=== PATIENT | male | born 1965 | race Caucasian/White ===

== ENCOUNTER 2016-07-03 16:03 | Emergency (ER) | payer BC ==
--- NOTE | ~2016-07-03 | CR173 ---
[facility]. [facility] A Service of [facility] & [facility] RADIOLOGY TEXT RESULTS PATIENT: LANIE TA LOCATION: SED : 61 UNIT #: [id number] AGE: [address]: Jesika Ding SEX: M ORDER DR: [id number] [place] [id number] MR#: [id number] Acc #: [id number] NAME: LANIE TA : 1965 SEX: M STUDY DATE/TIME: 07/03/2016 16:21 UNIT: SED ROOM: STUDY DESCRIPTION: CR Knee 3 Views Rt Attending Physician: Jesika Ding Pa-C Ordering Physician: Jesika Ding Pa-C Primary Care Physician: Soham Starks M.D. MEDICAL IMAGING REPORT This report is preliminary unless electronic signature is present. EXAM Right knee, 3 views. INDICATIONS Right knee pain since yesterday after slipping and injuring himself. COMPARISON No comparisons. FINDINGS There is no joint effusion. There is minimal patellar enthesopathy. There is no fracture. The joint spaces are maintained. IMPRESSION No acute findings. Minimal patellar enthesopathy. Dictated by... Adama Garcia M.D. THIS IS AN ELECTRONICALLY VERIFIED REPORT Adama Garcia M.D. at 07/04/2016 7:46 AM CHACE/swati TD: 07/03/2016 22:53 JOB #: [id number] MEDICAL IMAGING REPORT Page 1 of 1
[~2016-07-03 16:03] MED LIST: BETA BLOCKER; LORCET 10/650 T1 TAB; NORVASC; PERCOCET PO; TYL325 PO
== END 2016-07-03 17:10 | disposition home or self-care (01) ==
LOC: SED 16:03
DX: S89.91XA Unspecified injury of right lower leg, initial encounter (principal); I10 Essential (primary) hypertension; W01.0XXA Fall on same level from slipping, tripping and stumbling without subsequent striking against object, initial encounter; Y92.009 Unspecified place in unspecified non-institutional (private) residence as the place of occurrence of the external cause
CPT/HCPCS: 73562; 99283